=== PATIENT | male | born 1990 | race Caucasian/White ===

== ENCOUNTER → 2017-11-13 | Outpatient (CLI) | payer OTHER | END | disposition home or self-care (01) | LOC: US 06:59 | DX: R79.89 Other specified abnormal findings of blood chemistry (principal) | CPT/HCPCS: 76705 ==

== ENCOUNTER → 2018-06-10 | Outpatient (CLI) | payer OTHER ==
--- NOTE | 2018-06-11 08:40 | RAD ---
EXAM: Right knee, 3 views; right ankle, 3 views; right foot, 3 views. HISTORY: Pain. COMPARISON: None. FINDINGS: Right knee: 3 views the right knee are obtained. There is no fracture, dislocation or subluxation. Right ankle and foot: 3 views of the right ankle and foot are obtained. There is no fracture, dislocation or subluxation. There is a small corticated ossicle overlying the lateral ankle mortise in the mortise projection. There is a small benign osseous excrescence along the base of the first metatarsal. IMPRESSION: No acute osseous finding. Electronically signed by: Genesis Pena MD (06/11/2018 8:36 AM) [id number]
== END | disposition home or self-care (01) ==
LOC: RAD 17:19
PROVIDERS: ATTEND Family Medicine
DX: M25.561 Pain in right knee (principal); M25.571 Pain in right ankle and joints of right foot; M79.671 Pain in right foot
CPT/HCPCS: 73562; 73610; 73630